=== PATIENT | male | born 1945 | race Caucasian/White ===

== ENCOUNTER 2021-10-24 11:39 | Day surgery (SDC) | payer MEDICARE ==
[2021-10-24] VITALS (12 sets, daily range): BP systolic 141–173; BP diastolic 78–101
[~2021-10-24] VITALS: Ht 182.9 cm; Wt 89.8 kg
[~2021-10-24 11:39] MED LIST: NO HOME MEDS; ceFAZolin inj. 2,000 MG in dextrose 5%-water 100 ML IV ONE; famotidine 20mg tablet PO ONE; meperidine/PF 25mg/ml syringe IV PRN; morphine 2 MG/ML inj. syringe IV PRN; morphine 4 MG/ML inj SYRINge IV PRN; ondansetron/PF 4mg/2ml inj IV PRN; proCHLORperazine 10 MG/2 ml inj IV PRN; ringers solution, lacted 1,000 ML IV SCH
[2021-10-24] MEDS ORDERED: BUPIVAcaine/PF 2.5 mg/ml (0.25%) 30ml vial ONE (13:03)
[2021-10-24] MEDS ORDERED: LIDOcaine 1% 30ml preserv. free vial ONE (13:03)
[2021-10-24] MEDS ORDERED: sevoflurane 250ml liquid IH ONE (13:45)
[2021-10-24] MEDS ORDERED: rocuronium 10mg/ml inj IV ONE ×2 (13:45→14:06)
[2021-10-24] MEDS ORDERED: glycopyrrolate 0.2mg/ml inj ONE (13:45)
[2021-10-24] MEDS ORDERED: neostigmine methylsulfate 1 MG/ML 10ml vial ONE (13:45)
[2021-10-24] MEDS ORDERED: fentaNYL/PF 50MCG/1 ML 2ML syringe ONE (13:58)
[2021-10-24] MEDS ORDERED: midazolam 1 mg/ML 2ml injection ONE (13:58)
[2021-10-24] MEDS ORDERED: propofol inj 20 ML IV ONE (14:00)
[2021-10-24] MEDS ORDERED: LIDOcaine 1%/PF 5ML 10 MG/ML VIAL ONE (14:00)
[2021-10-24] MEDS ORDERED: dexamethasone sod phosphate 4mg/ml inj. ONE (14:06)
[2021-10-24] MEDS ORDERED: ondansetron/PF 4mg/2ml inj ONE (14:06)
[2021-10-24] MEDS ORDERED: meperidine/PF 25mg/ml syringe ONE (14:24)
[2021-10-24] MEDS ORDERED: acetaminophen 1,000mg/100ml IV 100 ML IV ONE (15:12)
--- NOTE | 2021-10-24 15:32 | NUR ---
Received from OR via [facility] , accompanied by Anesthesiologist DR SEBASTIAN and report given by Anesthesiolgist. PT PRESENTS WITH PIV 20G LEFT WRIST, ABD DRESSING CDI, VSS. Addendum: 10/24/21 at 1545 by Peggy Emery RN, RN Amended: Links added.
[2021-10-24] MEDS ORDERED: HYDROcodone/acetaminophen 5mg/325mg tablet PO PRN (15:35)
[2021-10-24] MEDS ORDERED: LIDOcaine 2% 10ml TOPICAL JELLY (Urojet) MM ONE (15:50)
--- NOTE | 2021-10-24 17:12 | NUR ---
PTHAS MET DC CRITERIA. PT URINATED 175 MLS INTO URINAL. PER DR MEDEIROS PT OK TO GO HOME WITHOUT KESSLER CATHETER. DC INSTRUCTIONS REVIEWED WITH PT, PT VERBALIZED UNDERSTANDING WITH NO FURTHER QUESTIONS AT THIS TIME, PT TAKEN OUT OF HOSPITAL IN WHEELCHAIR TO PRIVATE VEHICLE WHERE PT'S DROVE PT HOME. Addendum: 10/24/21 at 1736 by Peggy Emery RN, RN Amended: Links added.
== END 2021-10-24 17:12 | disposition home or self-care (01) ==
LOC: PAS 11:39
PROVIDERS: ATTEND Surgery
DX: K40.20 Bilateral inguinal hernia, without obstruction or gangrene, not specified as recurrent (principal); K42.0 Umbilical hernia with obstruction, without gangrene; Z79.899 Other long term (current) drug therapy; Z87.891 Personal history of nicotine dependence; Z98.890 Other specified postprocedural states; Z96.649 Presence of unspecified artificial hip joint; Z72.89 Other problems related to lifestyle
CPT/HCPCS: 49587; 49650; 82948; 93005; C1781; J0131; J0690; J1100; J2175; J2250; J2405; J2704; J2710; J3010; J3490; J7030; J7060; J7120; Z7506; Z7508; Z7512; A4215; A4618

== ENCOUNTER 2023-06-27 12:51 | Day surgery (SDC) | payer MEDICARE ==
[2023-06-21 10:41] LABS: BASOPHILS # (AUTO) 0.1 X10'3 (0-0.2); EOSINOPHILS # (AUTO) 0.1 X10'3 (0-0.9); EOSINOPHILS % (AUTO) 1.8 % (0-6); LYMPHOCYTES # (AUTO) 1.7 X10'3 (1.1-4.8); LYMPHOCYTES % (AUTO) 26.9 % (21-51); MEAN CORPUSCULAR HEMOGLOBIN 32.1 PG (27.0-31.0); MEAN CORPUSCULAR HGB CONC 33.8 g/dL (33.0-36.5); MEAN CORPUSCULAR VOLUME 94.9 FL (78-98); MEAN PLATELET VOLUME 8.4 FL (7.4-10.4); MONOCYTES # (AUTO) 0.5 X10'3 (0-0.9); MONOCYTES % (AUTO) 8.8 % (2-12); NEUTROPHILS # (AUTO) 3.8 X10'3 (1.8-7.7); NEUTROPHILS % (AUTO) 61.5 % (42-75); PRE OP HEMATOCRIT 41.5 % (42.0-52.0); PRE OP PLATELET COUNT 253 X10'3 (140-440); PRE OP WHITE BLOOD COUNT 6.2 10'3 (4.8-10.8); RED BLOOD COUNT 4.37 X10'6 (4.70-6.10); RED CELL DISTRIBUTION WIDTH 13.5 % (11.5-14.5)
[2023-06-21 10:46] LABS: ALBUMIN 3.8 G/DL (3.4-5.0); ALBUMIN/GLOBULIN RATIO 0.9 (1.1-1.5); ALKALINE PHOSPHATASE 66 IU/L (46-116); BLOOD UREA NITROGEN 15 MG/DL (7-18); BUN/CREATININE RATIO 15.6 (10.0-20.0); CALCIUM 9.2 MG/DL (8.5-10.1); CHLORIDE 104 MMOL/L (99-107); CREATININE 0.96 MG/DL (0.60-1.10); PRE OP ALT 26 U/L (30-65); PRE OP ANION GAP 8 (8-16); PRE OP AST 16 U/L (10-37); PRE OP BILIRUB, TOTAL 0.4 MG/DL (0.0-1.0); PRE OP POTASSIUM 4.4 MMOL/L (3.4-5.1); PRE OP SODIUM 139 MMOL/L (135-145); TOTAL CARBON DIOXIDE 27.4 MMOL/L (24-32); TOTAL PROTEIN 7.9 G/DL (6.4-8.2); eGFR 76 ML/MIN
[2023-06-21 10:49] LABS: PRE OP GLUCOSE 102 MG/DL (70-104)
[~2023-06-27] VITALS: Ht 182.9 cm; Wt 89.8 kg
[2023-06-27] VITALS (7 sets, daily range): BP systolic 119–153; BP diastolic 71–97; PULSE 66–78; RESP 12–17; TEMP 98.1; O2SAT 94–100
[~2023-06-27 12:51] MED LIST changes: -ceFAZolin inj. 2,000 MG in dextrose 5%-water 100 ML IV ONE; +cefazolin 2gm/D5W 100mL 100 ML IV ONE; -meperidine/PF 25mg/ml syringe IV PRN; -morphine 2 MG/ML inj. syringe IV PRN; -morphine 4 MG/ML inj SYRINge IV PRN; -ondansetron/PF 4mg/2ml inj IV PRN; -proCHLORperazine 10 MG/2 ml inj IV PRN
[2023-06-27] MEDS ORDERED: fentaNYL/PF 50MCG/1 ML 2ML syringe IV PRN ×2 (15:05)
[2023-06-27] MEDS ORDERED: labetalol 20mg/4ml (5mg/ml) syringe IV PRN (15:05)
[2023-06-27] MEDS ORDERED: morphine 4 MG/ML inj SYRINge IV PRN (15:05)
[2023-06-27] MEDS ORDERED: morphine 2 MG/ML inj. syringe IV PRN (15:05)
[2023-06-27] MEDS ORDERED: ondansetron/PF 4mg/2ml inj IV PRN (15:05)
[2023-06-27] MEDS ORDERED: ringers solution, lacted 1,000 ML IV SCH (15:05)
[2023-06-27] MEDS ORDERED: hydrALAZINE 20mg/ml inj. IV PRN (15:05)
[2023-06-27] MEDS ORDERED: BUPIVAcaine 2.5mg/ml inj 50ml vial (contains preservative) ONE ×2 (16:01)
[2023-06-27] MEDS ORDERED: BUPIVACAINE liposomal/PF 13.3 MG/ML vial IM ONE ×2 (16:01→16:38)
[2023-06-27] MEDS ORDERED: LIDOcaine 1% 30ml preserv. free vial ONE (16:01)
[2023-06-27] MEDS ORDERED: neostigmine methylsulfate 1 MG/ML 10ml vial ONE (16:02)
[2023-06-27] MEDS ORDERED: dexamethasone sod phosphate 10mg/ml inj ONE (16:02)
[2023-06-27] MEDS ORDERED: desflurane 240ml liquid inh. IH ONE (16:02)
[2023-06-27] MEDS ORDERED: glycopyrrolate 0.2mg/ml inj ONE (16:02)
[2023-06-27] MEDS ORDERED: fentaNYL/PF 50MCG/1 ML 2ML syringe ONE (16:05)
[2023-06-27] MEDS ORDERED: acetaminophen 1,000mg/100ml IV 100 ML IV ONE (16:06)
[2023-06-27] MEDS ORDERED: propofol inj 20 ML IV ONE (16:06)
[2023-06-27] MEDS ORDERED: midazolam 1 mg/ML 2ml injection ONE (16:06)
[2023-06-27] MEDS ORDERED: rocuronium 10mg/ml inj IV ONE (16:06)
[2023-06-27] MEDS ORDERED: ondansetron/PF 4mg/2ml inj ONE (16:06)
[2023-06-27] MEDS ORDERED: LIDOcaine 1% 30ml preserv. free vial IJ ONE (16:31)
[2023-06-27] MEDS ORDERED: BUPIVAcaine 0.25% w/Epi /PF 30ml vial IJ ONE (16:38)
[2023-06-27] MEDS ORDERED: labetalol 20mg/4ml (5mg/ml) syringe IV ONE (17:16)
[2023-06-27] MEDS ORDERED: oxyCODONE/APAP 5-325mg tablet PO PRN (17:45)
== END 2023-06-27 18:44 | disposition home or self-care (01) ==
LOC: PAS 12:51
PROVIDERS: ATTEND Surgery
DX: K43.0 Incisional hernia with obstruction, without gangrene (principal); M19.90 Unspecified osteoarthritis, unspecified site; Z96.642 Presence of left artificial hip joint; Z98.890 Other specified postprocedural states; Z87.891 Personal history of nicotine dependence; Z79.899 Other long term (current) drug therapy
CPT/HCPCS: 36415; 49594; 64488; 80053; 82948; 85025; 93005; C1781; C9290; J0131; J0690; J1100; J2250; J2405; J2704; J2710; J3010; J3490; J7030; J7120; S0020; Z7506; Z7508; Z7512; A4215; A4618